=== PATIENT | male | born 2000 | race Native Hawaiian/Other Pacific Islander ===

== ENCOUNTER 2018-03-18 19:14 | Emergency (ER) | payer SELFPAY ==
[2018-03-18 19:34] VITALS: TEMP 99.1
--- NOTE | 2018-03-18 19:59 | C.PDOC ---
History Of Present Illness 17 y/o male presents to the ED for psychiatric evaluation, brought in via EMS. Patient states he got mad and threatened to hurt his sister, although he denies any plan to do so. Reports he just got mad and did not mean it. Otherwise patient denies any suicidal ideation or auditory/visual hallucinations. He offers no physical complaints. Time Seen by Provider: 03/18/18 19:58 Chief Complaint (Nursing): Psychiatric Evaluation History Per: Patient History/Exam Limitations: no limitations Onset/Duration Of Symptoms: Hrs Current Symptoms Are (Timing): Still Present Suicide/Self Injury Attempted (Context): None Modifying Factor(s): None Severity: None Pain Scale Rating Of: 0 Associated Symptoms: Anger. denies: Suicidal Thoughts, Suicidal Plan Involuntary Hold By: None Additional History Per: EMS Past Medical History Reviewed: Historical Data, Nursing Documentation, Vital Signs Vital Signs: Last Vital Signs Temp 99.1 F 03/18/18 19:23 Pulse 58 L 03/18/18 19:23 Resp 14 03/18/18 19:23 BP 158/100 H 03/18/18 19:23 Pulse Ox 99 03/18/18 19:23 - Medical History PMH: No Chronic Diseases Surgical History: No Surg Hx Family History: States: No Known Family Hx - Social History Hx Tobacco Use: Yes Hx Alcohol Use: No Hx Substance Use: Yes (marijuana) - Immunization History Hx Tetanus Toxoid Vaccination: Yes Hx Influenza Vaccination: No Hx Pneumococcal Vaccination: No Review Of Systems Constitutional: Negative for: Fever, Chills Gastrointestinal: Negative for: Nausea, Vomiting Neurological: Negative for: Weakness, Numbness Psych: Positive for: Other (Anger). Negative for: Suicidal ideation (or ho micidal ideation/plan) Physical Exam - Physical Exam Appears: Non-toxic, No Acute Distress Skin: Warm, Dry Head: Normacephalic Eye(s): bilateral: Normal Inspection Oral Mucosa: Moist Neck: Trachea Midline, Supple Chest: Symmetrical Cardiovascular: Rhythm Regular Respiratory: No Rales, No Rhonchi, No Wheezing Gastrointestinal/Abdominal: Bowel Sounds (active), Soft, No Tenderness, No Distention Extremity: Bilateral: Atraumatic, Normal Color And Temperature Pulses: Left Dorsalis Pedis: Normal, Right Dorsalis Pedis: Normal Neurological/Psych: Oriented x3, Other (somewhat flat affect) ED Course And Treatment - Laboratory Results Result Diagrams: 03/18/18 20:19 03/18/18 20:19 O2 Sat by Pulse Oximetry: 99 (RA) Pulse Ox Interpretation: Normal Progress Note: Blood work and urine sent. residential program worker notified, and will evaluate patient. Pt was cleared for discharge by dr Valdez Disposition Counseled Patient/Family Regarding: Studies Performed, Diagnosis, Need For Followup - Disposition Disposition: HOME/ ROUTINE Disposition Time: 19:59 Condition: FAIR Instructions: Adjustment Disorder Forms: [employer] (Thai) - Clinical Impression Clinical Impression: Adjustment disorder with mixed disturbance of emotions and conduct - Scribe Statement The provider has reviewed the documentation as recorded by the Scribe (Bere Lopez) Provider Attestation: All medical record entries made by the Scribe were at my direction and personally dictated by me. I have reviewed the chart and agree that the record accurately reflects my personal performance of the history, physical exam, medical decision making, and the department course for this patient. I have also personally directed, reviewed, and agree with the discharge instructions and disposition.
[2018-03-18 20:33] LABS: BASO % 0.5 % (0.0-2.0); EOS % 0.2 % (0.0-4.0); HEMOGLOBIN 14.6 g/dL (12.0-18.0); LYMPH # 1.5 K/uL (1.0-4.3); LYMPH % 17.1 % (20.0-40.0); MEAN CELL VOLUME 86.6 fL (80.0-94.0); MEAN CORPUSCULAR HEMOGLOBIN 30.2 pg (27.0-31.0); MEAN CORPUSCULAR HGB CONC 34.8 g/dL (33.0-37.0); MEAN PLATELET VOLUME 8.1 fL (7.2-11.7); MONO # 0.5 K/uL (0.0-0.8); MONO % 5.7 % (0.0-10.0); NEUT # 6.9 K/uL (1.8-7.0); NEUT % 76.5 % (50.0-75.0); RBC 4.84 Mil/uL (4.40-5.90); RED CELL DISTRIBUTION WIDTH 13.1 % (11.5-14.5)
[2018-03-18 20:41] LABS: ALB/GLOB RATIO 1.5 (1.0-2.1); ALT/SGPT 19 U/L (21-72); AST/SGOT 26 U/L (17-59); BLOOD UREA NITROGEN 14 mg/dL (9-20); CALCIUM 9.9 mg/dl (8.6-10.4); GFR NON-AFRICAN AMERICAN > 60
[2018-03-18 20:45] LABS: SQUAMOUS EPITHIAL < 1 /hpf (0-5); URINE BILIRUBIN NEGATIVE (NEGATIVE); URINE BLOOD NEGATIVE (NEGATIVE); URINE CLARITY Hazy (Clear); URINE COLOR YELLOW (YELLOW); URINE GLUCOSE (UA) NEGATIVE (Normal); URINE LEUKOCYTE ESTERASE NEGATIVE Leu/uL (Negative); URINE PROTEIN NEGATIVE (NEGATIVE); URINE UROBILINOGEN Normal mg/dL (0.2-1.0)
[2018-03-18 20:46] LABS: URINE AMORPHOUS SEDIMENT FEW /ul (<OCC); URINE CALCIUM OXALATE CRYSTALS OCC /hpf (<OCC)
[2018-03-18 20:56] LABS: BARBITURATES, UR NEGATIVE (NEGATIVE); BENZODIAZEPINES, UR NEGATIVE (NEGATIVE); OPIATES, UR NEGATIVE (NEGATIVE); PHENCYCLIDINE, UR NEGATIVE (NEGATIVE)
[2018-03-18 22:14] VITALS: BP 137/88; PULSE 81; RESP 20; O2SAT 98
== END 2018-03-18 22:25 | disposition home or self-care (01) ==
LOC: EDBD 19:14 → C.ER 19:14
DX: F43.25 Adjustment disorder with mixed disturbance of emotions and conduct (principal)
CPT/HCPCS: 80053; 81001; 83735; 84100; 85025; 99284; G0480